=== PATIENT | male | born 1960 | race Caucasian/White ===

== ENCOUNTER 2021-12-10 13:59 | Emergency (ER) | payer SELFPAY ==
--- NOTE | 2021-12-10 15:00 | XRay Report ---
NECK SOFT TISSUE 2 VIEW(S) INDICATION / CLINICAL INFORMATION: foreign body COMPARISON: None available. FINDINGS: EPIGLOTTIS: No significant abnormality. RETROPHARYNGEAL SOFT TISSUES: No significant abnormality. AIRWAY: No significant abnormality. RADIOPAQUE FOREIGN BODY: None visualized. SKELETAL SYSTEM: Cervical spondylosis, as pronounced at C5-C6. No acute findings. ADDITIONAL FINDINGS: None. IMPRESSION: No significant abnormality. No radiopaque foreign body identified. Signer Name: Duy Bartlett MD Signed: 12/10/2021 2:55 PM Workstation Name: [id number]
[2021-12-10] MEDS: KETOROLAC 30 MG/1 ML INJ IM ONE ×2 (23:17→23:20)
[2021-12-10] MEDS: dexAMETHasone 20 MG/5 ML VIAL IM ONE ×2 (23:18→23:20)
--- NOTE | 2021-12-10 23:44 | Emergency Department Report ---
ED General Adult HPI - General Chief complaint: Skin/Abscess/Foreign Body Stated complaint: OBJECT STUCK IN THROAT Time Seen by Provider: 12/10/21 23:02 Source: patient Mode of arrival: Ambulatory Limitations: No Limitations - History of Present Illness Initial comments: Patient presents for foreign body sensation in throat. States partial hook came off today and got lost in his throat. Now complains of 4/10 throat pain. There is no fevers no chills no cough no wheezing no other symptoms. There is no cough no wheezing no stridor. Their been no fever no chills. Patient is tolerating p.o. intake. There is no throat or oral swelling. No fevers no chills no cough no stridor. Severity scale (0 -10): 0 - Related Data Previous Rx's Medication Instructions Recorded Last Taken Type dexAMETHasone [Decadron] 4 mg PO BID 3 Days #6 tablet 12/11/21 Unknown Rx Allergies Allergy/AdvReac Type Severity Reaction Status Date / Time Penicillins AdvReac Rash Verified 12/10/21 14:14 ED Review of Systems ROS: Stated complaint: OBJECT STUCK IN THROAT Other details as noted in HPI Constitutional: denies: chills, fever Eyes: denies: eye pain, eye discharge, vision change ENT: denies: ear pain, throat pain Respiratory: denies: cough, shortness of breath, wheezing Cardiovascular: denies: chest pain, palpitations Endocrine: no symptoms reported Gastrointestinal: denies: abdominal pain, nausea, diarrhea Genitourinary: denies: urgency, dysuria Musculoskeletal: denies: back pain, joint swelling, arthralgia Skin: denies: rash, lesions Neurological: denies: headache, weakness, paresthesias Psychiatric: denies: anxiety, depression Hematological/Lymphatic: denies: easy bleeding, easy bruising ED Past Medical Hx - Medications Home Medications: Home Medications Medication Instructions Recorded Confirmed Last Taken Type dexAMETHasone [Decadron] 4 mg PO BID 3 Days #6 tablet 12/11/21 Unknown Rx ED Physical Exam - General Limitations: No Limitations General appearance: alert, in no apparent distress - Head Head exam: Present: normocephalic, normal inspection - Eye Eye exam: Present: EOMI Pupils: Present: normal accommodation - ENT ENT exam: Present: normal orophraynx, mucous membranes moist - Neck Neck exam: Present: normal inspection, full ROM. Absent: tenderness, lymphadenopathy - Respiratory Respiratory exam: Present: normal lung sounds bilaterally. Absent: rales, stridor, accessory muscle use ED Course Vital Signs 12/10/21 14:13 Temperature 98.8 F Pulse Rate 122 H Respiratory 20 Rate Blood Pressure 138/90 [Right] O2 Sat by Pulse 97 Oximetry ED Medical Decision Making - Medical Decision Making Airway is patent there is no swelling no erythema no stridor. X-ray soft tissue neck no foreign body noted. Plan follow-up with ENT doctor tomorrow. Take medication as prescribed, return to emergency department should symptoms worsen. Patient verbalized agreement and understanding of same patient will follow-up with ENT tomorrow. Critical care attestation.: If time is entered above; I have spent that time in minutes in the direct care of this critically ill patient, excluding procedure time. ED Disposition Clinical Impression: Foreign body ingestion Qualifiers: Encounter type: initial encounter Qualified Code(s): T18.9XXA - Foreign body of alimentary tract, part unspecified, initial encounter Disposition: HOME / SELF CARE / HOMELESS Is pt being admited?: No Does the pt Need Aspirin: No Condition: Stable Instructions: Swallowed Foreign Body, Adult Additional Instructions: Take medications as prescribed, follow-up with ear nose and throat doctor tomorrow as directed. Return to emergency department should symptoms worsen. Prescriptions: dexAMETHasone [Decadron] 4 mg PO BID 3 Days #6 tablet Referrals: HANNY FLOR MD [Referring] - EDMAR Forms: Work/School Release Form(ED) Time of Disposition: 00:53
[2021-12-11 00:13] VITALS: BP 140/102
== END 2021-12-11 01:38 | disposition home or self-care (01) ==
LOC: ED 13:59
DX: T17.208A Unspecified foreign body in pharynx causing other injury, initial encounter (principal); Z88.0 Allergy status to penicillin; X58.XXXA Exposure to other specified factors, initial encounter; Y93.89 Activity, other specified; Y92.89 Other specified places as the place of occurrence of the external cause; Y99.8 Other external cause status
CPT/HCPCS: 70360; 99283; J1885; J1100